=== PATIENT | male | born 1995 | race Caucasian/White ===

== ENCOUNTER 2018-07-02 10:05 | Emergency (ER) | payer OTHER ==
[~2018-07-02] VITALS: Ht 180.3 cm; Wt 81.8 kg
[2018-07-02] MEDS ORDERED: COLC1TAB13 PO (10:14)
[2018-07-02] MEDS ORDERED: KETOROLAC 30 MG/ML VIAL (J1885) IV ONE (10:30)
[2018-07-02 10:52] LABS: BASO % 0.5 % (0.0-1.0); EOS # 0.1 10^3/uL (0.0-0.50); EOS % 0.9 % (0.0-3.0); HEMATOCRIT 47.3 % (42.0-52.0); LYMPH % 30.9 % (24.0-44.0); MEAN CORPUSCULAR HEMOGLOBIN 29.3 pg (27.0-33.0); MEAN CORPUSCULAR HGB CONC 35.9 g/dl (32.0-36.5); MEAN CORPUSCULAR VOLUME 81.6 fl (80.0-96.0); MONO # 0.5 10^3/uL (0.0-0.8); MONO % 8.2 % (0.0-5.0); NEUTROPHILS # 3.9 10^3/uL (1.8-7.7); NEUTROPHILS % 59.2 % (36.0-66.0); PLATELET COUNT, AUTOMATED 211 10^3/uL (150-450); WHITE BLOOD COUNT 6.6 10^3/uL (4.0-10.0)
[2018-07-02 11:20] LABS: ALBUMIN 4.3 GM/DL (3.2-5.2); ALT/SGPT 24 U/L (12-78); BILIRUBIN,TOTAL 0.5 MG/DL (0.2-1.0); BLOOD UREA NITROGEN 16 MG/DL (7-18); CALCIUM LEVEL 8.5 MG/DL (8.5-10.1); CARBON DIOXIDE LEVEL 29 MEQ/L (21-32); CHLORIDE LEVEL 104 MEQ/L (98-107); CK-MB VALUE MASS < 1.0 NG/ML (<3.6); CPK CREATINE PHOSPHOKINASE 171 U/L (39-308); CREATININE FOR GFR 0.97 MG/DL (0.70-1.30); GLUCOSE, FASTING 88 MG/DL (70-100); MB/CK RELATIVE INDEX 0.58 (< OR =4); POTASSIUM SERUM 3.5 MEQ/L (3.5-5.1); SODIUM LEVEL 140 MEQ/L (136-145); TOTAL PROTEIN 7.8 GM/DL (6.4-8.2); TROPONIN I < 0.02 NG/ML (< 0.10)
--- NOTE | 2018-07-02 11:25 | REP ---
CHEST, TWO VIEWS: There is no evidence of acute infiltrate. No pleural effusion is seen. The heart is normal in size. The mediastinal silhouette is unremarkable. The visualized osseous structures are intact. IMPRESSION: No acute pulmonary disease. Electronically Signed by Obie Moore MD 07/02/2018 05:03 P
[2018-07-02 11:36] LABS: ERYTHROCYTE SEDIMENTATION RATE 2 mm/hr (0-15)
[2018-07-02 12:22] VITALS: BP 127/79
--- NOTE | 2018-07-03 06:49 | ECGEPIP ---
Stationary ECG Study [facility] - ED Test Date: 2018-07-02 Pat Name: KATHERINE AQUINO Department: Room: - Gender: M Digital Coordinator: TC : 1995 Requested By: Isela Carnes Order Number: [id number] Reading MD: Juan Méndez Measurements Intervals [place] Rate: 73 P: 9 CA: 107 QRS: 69 QRSD: 89 T: 62 QT: 374 QTc: 413 Interpretive Statements SINUS RHYTHM WITH SHORT CA INTERVAL BENIGN EARLY REPOLARIZATION NO PRIORS FOR COMPARISON Electronically Signed On 07-03-2018 6:49:42 EST by Juan Méndez
== END 2018-07-02 12:27 | disposition home or self-care (01) ==
LOC: M ED 10:05
DX: R07.9 Chest pain, unspecified (principal); Z86.79 Personal history of other diseases of the circulatory system; R06.02 Shortness of breath; Z79.899 Other long term (current) drug therapy
CPT/HCPCS: 71046; 80053; 82550; 82553; 84484; 85025; 85379; 85652; 93005; 96374; 99284; J1885

== ENCOUNTER → 2018-09-10 | Outpatient (CLI) | payer OTHER ==
[~2018-09-10] MED LIST: COLC1TAB13 PO; METHACHOLINE KIT (J7674) INH ONE
--- NOTE | 2018-09-10 15:13 | PFTRPT ---
Height: 71.00 Inches Weight: 185.00 Lbs BSA: 2.04 Diagnosis: R05 DATE OF PROCEDURE: 09/10/2018 ORDERED BY: CLARISSA Yepez INTERPRETATION: Study of excellent technical quality. Under protocol, methacholine was administered. At a dose of 0.025 mg or 0.125 CDUs, a 24% decline in the FEV1 was noted. Flow rates did return to near baseline post bronchodilator administration. Some mild difficulty with effort was noted. IMPRESSION: Positive methacholine challenge study. MTDD
== END ==
LOC: M CARPUL 14:36
PROVIDERS: ATTEND Nurse Practitioner Family
DX: R94.2 Abnormal results of pulmonary function studies (principal)
CPT/HCPCS: 94070; J7674